=== PATIENT | female | born 1980 ===

== ENCOUNTER 2024-12-20 07:23 | Emergency (ER) | payer OTHER, SELFPAY ==
[2024-12-20 07:34] VITALS: BP 134/81; PULSE 70; RESP 18; TEMP 36.3; O2SAT 100; BMI 20.7
--- NOTE | 2024-12-20 07:47 | ED_ITS ---
HPI - General Adult General Chief complaint: Back Pain/Injury Stated complaint: t-1, neck pain. hard to move back and neck Time Seen by Provider: 12/20/24 07:47 Source: patient and agricultural researcher (all interactions with this patient were facilitate with an [facility] program technician) Mode of arrival: ambulatory Limitations: language barrier (all interactions with this patient were facilitate with an [facility] program technician) History of Present Illness ED Provider: Yisel Simpson PA-C HPI narrative: Patient is a 44 year old assigned female at with no reported medical history presenting to the emergency department today with left sided neck pain. Patient states that over the last couple of days she has had left sided neck pain that radiates into the back of her head. Patient states that it is painful for her to turn her head to the left. Patient states that she fell on December 08 but did not specifically injure her neck / head. Patient denies any other complaints at this time. Related Data Previous Rx's ?Medication ?Instructions ?Recorded cyclobenzaprine 5 mg tablet 5 mg PO TID PRN muscle spa sm 7 12/20/24 days #21 tabs Allergies Allergy/AdvReac Type Severity Reaction Status Date / Time No Known Allergies Allergy Verified 12/20/24 07:39 Review of Systems Constitutional: Constitutional: Reports as per HPI Eyes: Eyes: Reports as per HPI ENT: Reports as per HPI Cardiovascular: Cardiovascular: Reports as per HPI Respiratory: Respiratory: Reports as per HPI Gastrointestinal: Gastrointestinal: Reports as per HPI Genitourinary: Genitourinary: Reports as per HPI Musculoskeletal: Musculoskeletal: Reports as per HPI Integumentary/Breasts: Skin/Breast: Reports as per HPI Neurologic: Reports as per HPI Psychiatric: Psychiatric: Reports as per HPI Endocrine: Endocrine: Reports as per HPI Hematologic/Lymphatic: Hematologic/Lymphatic: Reports as per HPI Allergic/Immunologic: Allergic/Immunologic: Reports as per HPI PMF Past Medical History Attestation statement: The following information was validated with the patient. Source: old records reviewed and nursing notes reviewed Social History Social History Advance Directives: No Advance Directives Information Provided: Yes Physical Exam ED Vital Signs: Vital Signs - 24 hr 12/20/24 07:34 Temperature 97.4 F Pulse Rate 70 Respiratory Rate 18 Blood Pressure 134/81 Pulse Oximetry 100 Oxygen Delivery Method Room Air BMI result Body Mass Index 20.7 Const General: cooperative, no acute distress, alert and awake Nutritional Appearance: well nourished Orientation/consciousness: patient oriented x3 HENMT Head: Yes normal to inspection and Yes atraumatic Ears: hearing grossly normal bilaterally and external ears normal General nose exam: Normal external nose present, no nasal discharge noted and no epistaxis Face and sinus: Yes normal facial exam, No abrasion and No laceration Mouth: Normal oral and palatal mucosa present, no drooling and no muffled voice Eyes General: appearance normal, both eyes and all related structures Periorbital: periorbital findings normal Eyelids: Yes eyelids normal Conjunctivae: conjunctivae normal Pupils: Equal, round and reactive pupils present EOM: EOMs intact bilaterally Neck Other: decreased range of motion to the left secondary to pain Neck: Yes normal visual inspection Resp Effort & Inspection: normal respiratory effort and able to speak in complete sentences Neuro General: patient oriented x3, moves all extremities and CN's II-XI intact bilaterally Cranial nerves: Yes Equal, round and reactive pupils present Cognition (Neuro): normal cognition Extrem General: Yes normal to inspection, Yes full ROM and Yes capillary refill normal Psych Appearance: grossly normal Mental Status: mental status grossly normal Affect: normal affect Attitude: cooperative Thought process: Normal thought process present Thought content: Normal thought content present Insight: Good insight present (Psych) Medical Decision Making Medical Decision Making MDM Narrative: Patient is a 44 year old assigned female at with no reported medical history presenting to the emergency department today with left sided neck pain. Patient's physical exam was as noted in the physical exam portion of this note and consistent with a left sided cervical muscle spasm vs. torticollis. Patient had no meningeal signs. I explained my physical exam findings to the patient. I answered all questions asked by the patient. I stressed the importance of the patient taking her medication as directed (either prescribed or as the over the counter packaging recommends). I stressed the importance of the patient following up with her primary care provider. I stressed the importance of the patient returning to the emergency department immediately if her symptoms were to worsen or if she were to develop any dizziness, shortness of breath, difficulty breathing, chest pain, blurry vision, loss of vision, nausea, vomiting, abdominal pain, fever, chills, back pain, or any other complaints. Patient verbalized agreement and understanding with this treatment plan and discharge. Differential Diagnosis Differential Diagnoses: The differential diagnosis associated with the presentation includes Cervical spasm Torticollis Admission/Observation Consideration of admission/observation: Escalation of care including admission/observation considered Patient would have been admitted to the hospital had her clinical presentation warranted hospital admission. Prescription Management I considered prescription management with: Pain Medication (patient prescribed pain medication for left sided cervical spasm) Discharge Plan Discharge Clinical Impression: Cervical paraspinal muscle spasm Patient Disposition: Home, Self-Care Instructions: Muscle Spasm (ED) Additional Instructions: IF you are prescribed home medications and/or you are taking over the counter medications at home- it is very important you continue to do so as prescribed / directed unless told otherwise. SI le recetan medicamentos y/o est? tomando medicamentos de venta keely, es muy importante que contin?e haci?ndolo seg?n lo recetado/indicado a menos que le indiquen lo contrario. Follow up with your primary care provider. Return to the emergency department immediately if your symptoms worsen or if you develop any dizziness, shortness of breath, difficulty breathing, chest pain, blurry vision, loss of vision, nausea, vomiting, abdominal pain, fever, chills, back pain, or any other complaints. Jacey?seguimiento?con stevens m?dico de atenci?n primaria. Acuda inmediatamente al servicio de urgencias si sreekanth s?ntomas empeoran o si presenta falta de aliento, dificultad para respirar, dolor tor?cico, mareos, aturdimiento, dolor de espald a, dolor abdominal, fiebre, escalofr?os o cualquier otro s?ntoma. Please see the information below about our Patient Portal. If you are not yet enrolled in the [facility] Patient Portal, you will receive an enrollment email invitation following your visit to any [facility] care setting. You may also self-enroll in the Patient Portal by visiting our website: [email or web address] The following information is required to access the Patient Portal: - Your [facility] Medical Record Number - Your personal home email address (must match what is in your electronic medical record, Registration staff can assist with this) - Name - Date of Capabilities of the Patient Portal: - Message some providers - View upcoming appointments - Access your health summary, medical history, and visit history - View current conditions and allergies - View procedure and lab results - View your medications, including guidelines, side effects, and precautions - Complete pre-appointment questionnaires requested by your provider - Ready summary reports of your office visits and procedures To access the Patient Portal Mobile Suzi, follow these directions: - Search Renewable Funding in the Suzi Store or [employer] Store - Download the Suzi - Search for [facility] - Enter your login/password Portal del paciente Si usted no esta inscrito en el portal de pacientes de [facility], recibira amrita invitacion de inscripcion despues de stevens visita al [facility] o al [facility] via correo electronico. Tambien puede inscribirse voluntariamente en el portal de pacientes visitando nuestra pagina web: [email or web address] La siguiente informacion sera requerida para acceder al portal: - Stevens gilbert de historia medica de [facility] - Stevens direccion de correo electronico personal - Nombre - Fecha de nacimiento Capacidades: Las siguientes capacidades estan disponibles en el portal de pacientes: - Enviar mensajes a algunos doctores - Verificar proximas citas - Acceso a stevens historial de jackelin, registro medico e historial de visitas - Mike las condiciones actuales y alergias mike procedimientos y resultados del laboratorio - Mike sreekanth medicamentos, incluyendo las pautas - Efectos secundarios y precauciones - Completar o llenar formularios / cuestionarios de - Citas solicitadas por stevens doctor - Leer los resumenes de reportes medicos de sreekanth visitas y procedimientos Heather acceder a la aplicacion movil: - Liu ASYM IIIealth en la Suzi Store o [employer] Store - Descargue la aplicacion - [facility] - Ingrese stevens nombre de usuario / Contrasena Prescriptions: New cyclobenzaprine 5 mg tablet 5 mg PO TID PRN (Reason: muscle spasm) 7 Days Qty: 21 0RF Referrals: Brent Engel MD [Primary Care Provider, Internal Medicine] Stand Alone Forms: Work/School Release Print Language: Turkish
--- OUTSIDE RECORDS SUMMARY | 2024-12-20 07:56 | XMS_ITS | Clinical Summary ---
Author Organization [facility] Address [address] [place] [address] Phone Care Team Providers Care Federal Aid Coordinator Name Role Phone Unknown, Unknown Primary Care Provider Elias webster Social History Tobacco Use Types Packs/Day Years Used Date Smoking Tobacco: Never Assessed Education Answer Date Recorded Are you interested in more education? Not on kathrine e 07/01/2022 Are you concerned about learning? Not on file 07/01/2022 No 07/01/2022 No 07/01/2022 Digital Access Answer Date Recorded No 07/30/2022 No 07/30/2022 No 07/30/2022 Reliable internet access at home? Not on file 07/30/2022 Device with a working camera? Not on file Comments Unknown Sex and Gender Information Value Date Recorded Sex Assigned at Not on file Legal Sex Female 1:36 PM EDT Gender Identity Not on file Sexual Orientation Not on file Last Filed Vital Signs Vital Sign Reading Time Taken Comments Blood Pressure 119/76 06/22/2019 1:50 PM EDT Pulse 89 06/22/2019 1:50 PM EDT Temperature 37 C (98.6 F) 06/22/2019 1:50 PM EDT Respiratory Rate 20 06/22/2019 1:50 PM EDT Oxygen Saturation 97% 06/22/2019 1:50 PM EDT Inhaled Oxygen Concentration - - Weight - - Height - - Body Mass Index - - Plan of Treatment Health Maintenance Due Date Last Done Comments LIPID PANEL 1978 DEPRESSION SCREENING 1990 SMOKING Hx and SMOKELESS TOBACCO SCREENING 1991 HEPATITIS C SCREENING 02/05/1996 HIV ONE-TIME SCREENING (18-6 5 YEARS) 02/05/1996 PAP SMEAR 1999 MAMMOGRAM 2018 COLOGUARD 2023 COLONOSCOPY 2023 COLORECTAL CANCER SCREENING 2023 FIT TEST 2023 FOBT 2023 SIGMOIDOSCOPY 2023 VIRTUAL COLONOSCOPY 2023 INFLUENZA VACCINE (#1) 2024 9, 11/15/2017 COVID-19 VACCINE (3 - 2024-2 6 season) 2024 07/23/2020, 07/02/2020 Adult Td,Tdap Booster 09/01/2027 08/31/2017 HEPATITIS A VACCINES Aged Out No long er eligible based on patient's age to complete this topic HIB VACCINES Aged Out No longer eligi ble based on patient's age to complete this topic MENINGOCOCCAL VACCINES (ACWY) Aged Out No longer eligible based on patient's age to complete this topic MENINGOCOCCAL VACCINES (B) Aged Out N o longer eligible based on patient's age to complete this topic PNEUMOCOCCAL VACCINES (0-49 years) Aged Out No longer eligible b ased on patient's age to complete this topic Medical Devices Not on file Insurance #[address] [place] [address] HEALTH SAFETY NET [place] [address] [address] NON [facility] [employer] [address] [place] [address] HEALTH SAFETY NET PARTIAL [employer] NON [place] PCP [employer] [address] [place] [address] HEALTH SAFETY NET PARTIAL Member Subscriber Plan / Payer (Ef fective 2019-Present) Name:Leavitt Nicolette Relation to Subscriber:Self Name:Nicolette Leavitt Payer ID:Not on file Group ID:Not on file Type:Medicaid Address: [place] [id number] [employer] NON [place]SPG PCP [employer] HEALTH SAFETY NET [place] [address] [address] NON NSP PCP [employer] HEALTH SAFETY NET PARTIAL [place] NON NSPG PCP [employer] [address] [place] [address] HEALTH SAFETY NET PARTIAL [place] NON NSPG PCP [employer] HEALTH SAFETY NET PARTIAL [place] NON NSPG PCP [employer] [facility] NET PARTIAL [place] NON N[place] PCP [employer] HEALTH SAFETY NET PARTIAL [facility] NON [facility] PCP [facility] Care Teams Federal Aid Coordinator Relationship Specialty Start Date End Date Unknown, Unknown, PCP - General 06/22/19 Additional Source Comments The information contained in this document represents components of the legal health record. It is not the complete legal health record.[facility]
[2024-12-20 08:15] VITALS: BP 134/81; PULSE 70; RESP 18; TEMP 36.3; O2SAT 100
== END 2024-12-20 08:16 | disposition home or self-care (01) ==
PROVIDERS: Emergency Provider Emergency Medicine; PCP Family Medicine
DX: M54.2 Cervicalgia (principal); M54.50 Low back pain, unspecified; Z79.899 Other long term (current) drug therapy
CPT/HCPCS: 96372; 99283; 99284; J1885

== ENCOUNTER 2025-02-13 13:42 | Outpatient (AMB) | payer OTHER, SELFPAY ==
--- NOTE | 2025-02-13 14:02 | MHC.PC.OV ---
Vital Signs 02/13/25 14:18 Height 5 ft 6 in Weight 133 lb 2 oz BMI 21.5 BP 114/70 Blood Pressure Location Lt brachial Position Sitting Respiration 18 Pulse 63 Pulse Source Pulse Oximeter Temp 98.1 F Temp Source Oral Pulse Oximetry (%) 99 Oxygen Delivery Method Room Air Intake Visit Reasons: [employer] -per joel Intake Note: New patient here to establish care Doughnut Icer Machine Required: Yes Doughnut Icer Machine Name: Id# [id number] Information Interpreted: non-clinical & clinical Accompanied by: Self / Same As Patient Allergies No Known Allergies Allergy (Verified 02/13/25 14:14) Tobacco use date assessed: 02/13/25 Dental Screening Dental Screen Date: 02/13/25 Did you have a dental visit in the last 12 months?: Yes Did you have a dental problem in the last 6 months where you did not have access to dental care?: No Was dental information given to patient?: Patient has dentist HPI [employer] -per joel HPI Details New Patient? ?? Prior PCP:? No Recent PCP Last office visit/CPE:? Acute issue(s):? Stomach discomfort & Bloating after eating. Drinks about 36 Oz water daily. ?? PMHx:? Denies SurgHx:? Cervix & Steralization FHx:? Not known SocHx:?Never smoked, EtOH None. No drugs PFSH Surgical History (Updated 02/13/25 @ 14:41 by Jeremy Portillo CMA) H/O: hysterectomy H/O eye surgery Social History (Updated 02/13/25 @ 14:17 by Jeremy Portillo CMA) Housing: House Alcohol intake: never Patient Tobacco Use Status: Never used Tobacco e-Cigarette/Vaping Use: Never Used Second Hand Smoke Exposure: No Use of substances other than those prescribed or required for medical reasons: No service: No Current occupational status: employed Current occupation: Maintenance Cognitive needs: No Hearing needs: No Vision needs: Yes Questionnaire PHQ-9 Over the last 2 weeks, how often have you been bothered by any of the following problems? 1. Little interest or pleasure in doing things: not at all 2. Feeling down, depressed, or hopeless: not at all 3. Trouble falling or staying asleep, or sleeping too much: nearly every day 4. Feeling tired or having little energy: not at all 5. Poor appetite or overeating: not at all 6. Feeling bad about yourself - or that you are a failure or have let yourself or your family down: not at all 7. Trouble concentrating on things, such as reading the newspaper or watching television: not at all 8. Moving or speaking so slowly that other people could have noticed. Or the opposite - being so fidgety or restless that you have been moving around a lot more than usual: not at all 9. Thoughts that you would be better off or of hurting yourself in some way: not at all Total score: 3 Depression Screening Interpretation: Negative Depression Screening Done: Yes [id number] - PHQ-9 Billing: Yes Source: Developed by Drs. Jaren Damico, Yelena Nice, Chuy Calloway and colleagues, with an educational yoselyn from [employer]. Thrive Questionnaire Date Thrive assessed: 02/13/25 I am a: Patient What is your living situation today?: I have a steady place to live Within the past 12 months, did the food you bought not last and you didn't have the money to get more?: Never true Within the past 12 months, did you worry whether your food would run out before you got money to buy more?: Never true Do you have trouble paying for medicines?: No Do you have trouble getting transportation to medical appointments?: No Do you have trouble paying your heating and electricity bill?: No Do you have trouble taking care of your child, family member or friend?: No Do you have trouble with day-to-day activities such as bathing, preparing meals, shopping, managing finances, etc.?: No Are you currently unemployed and looking for a job?: No Are you interested in more education?: No Please select the resources that you would like help with: None Currently or been in a relationship where the following occur: No concerns reported THRIVE Score: 0 AUDIT C Alcohol Use Questionnaire (AUDIT-C) 1. How often do you have a drink containing alcohol?: Never Total Score: 0 ISAAC-7 AMB Questionnaire ISAAC-7 Date ISAAC - 7 assessed: 02/13/25 Feeling nervous, anxious, or on edge: 0 = Not at all Not being able to stop or control worryin = Not at all Worrying too much about different things: 0 = Not at all Trouble relaxin = Not at all Being so restless that it is hard to sit still: 0 = Not at all Becoming easily annoyed or irritable: 0 = Not at all Feeling afraid as if something awful might happen: 0 = Not at all Total ISAAC-7 score (0-4 normal; 5-9 mild; 10-14 moderate; 15-21 severe): 0 Source: Developed by Drs. Jaren Damico, Yelena Nice, Chuy Calloway and colleagues, with an educational yoselyn from [employer]. ISAAC-7 Assessment Billing ISAAC-7 Assessment Tool: ISAAC-7 Assessment 65682 Review of Systems Const Denies chills, Denies fatigue, Denies fever(s), Denies headache(s) and Denies weakness ENT Denies dizziness and Denies headache(s) Card Denies chest pain, Denies lightheadedness, Denies dyspnea and Denies other (Palpitations) Resp Denies cough, Denies dyspnea, Denies wheezing and Denies other ( shortness of breath) Musc Denies numbness and Denies tingling Neuro Denies dizziness, Denies headache(s), Denies numbness, Denies tingling, Denies paresthesias and Denies weakness Psych Denies anxiety and Denies depression Endo Denies fatigue Aller/Immun Denies wheezing Physical exam (Primary Care) Vital Signs: Last Vital Signs Temp 98.1 F 02/13/25 14:18 Pulse 63 02/13/25 14:18 Resp 18 02/13/25 14:18 BP 114/70 02/13/25 14:18 Pulse Ox 99 02/13/25 14:18 Oxygen Delivery Method Room Air 02/13/25 14:18 BMI result Body Mass Index 21.5 Tobacco/Smoking Status: Tobacco use Status Tobacco use date assessed 02/13/25 02/13/25 14:20 Patient Tobacco Use Status Never used Tobacco 02/13/25 14:20 e-Cigarette/Vaping Use Never Used 02/13/25 14:20 PHQ-9: PHQ-9 Score PHQ-9: Total score 3 02/13/25 14:40 Depression Screening Interpretation: Negative Thrive Assessment: Date of Thrive Assessment Date Thrive assessed 02/13/25 02/13/25 14:03 Currently or been in a relationship where the following occur: No concerns reported Const General: no acute distress and well developed Nutritional Appearance: well nourished Orientation/consciousness: patient oriented x3 HENMT Head: Yes normocephalic and Yes atraumatic Eyes General: appearance normal, both eyes and all related structures Pupils: Equal, round and reactive pupils present EOM: EOMs intact bilaterally Resp Effort & Inspection: normal respiratory effort Auscultation: clear to auscultation bilaterally Cardio Rate: regular rate Rhythm: regular rhythm Heart sounds: S1 normal heart sound present, S2 normal heart sound present, no gallops, no murmurs and no rubs Neuro General: patient oriented x3 and gait normal Cranial nerves: Yes Equal, round and reactive pupils present Psych Affect: normal affect Coding Level of Care Code New Pt Level 3 (93845) Diagnoses Abdominal discomfort R10.9 Laboratory exam ordered as part of routine general medical examination Z00.00 Additional Codes ISAAC-7 Assessment Billing - ISAAC-7 Assessment Tool: ISAAC-7 Assessment 95799 ([id number]) PHQ-9 - 01769 - PHQ-9 Billing: Yes ([id number]) Assessment & Plan Assessment & Plan (1) Abdominal discomfort: Code(s): R10.9 - Unspecified abdominal pain Category: Medical Plan: Abdominal discomfort and bloating Increase hydration Try a soluble fiber capsule If not improving will try simethicone and refer to Gastroenterology (2) Laboratory exam ordered as part of routine general medical examination: Code(s): Z00. - Encounter for general adult medical examination without abnormal findings Category: Medical Plan: Check labs Orders: Orders Complete Blood Count Auto Diff Today Z00.00 - Encounter for general adult medical examination without abnormal findings Lipid Panel Today Z00.00 - Encounter for general adult medical examination without abnormal findings Microalbumin, Random (w Creat) Today I10 - Essential (primary) hypertension Comprehensive [place]. Panel Fast Today Z00.00 - Encounter for general adult medical examination without abnormal findings TSH reflex Free T4 Today Z00.00 - Encounter for general adult medical examination without abnormal findings UA CC w/rflx Micro + Cult Today Z00.00 - Encounter for general adult medical examination without abnormal findings Medications: New calcium polycarbophil (FiberCon) 625 mg PO DAILY 30 tabs 2RF 30 days Discontinued cyclobenzaprine Discontinued Reason: Patient no longer taking 5 mg PO TID 7 days PRN 21 tabs 0RF muscle spasm
[2025-02-13 14:18] VITALS: BP 114/70; PULSE 63; RESP 18; TEMP 36.7; O2SAT 99; BMI 21.5
--- OUTSIDE RECORDS SUMMARY | 2025-02-13 21:00 | XMS_ITS | Clinical Summary ---
Author Organization [facility] Address [address] [place] [id number] Phone Care Team Providers Care Shoe Lay Out Planner Name Role Phone Unknown, Unknown Primary Care [...] Medical Devices Not on file Insurance #2 [place] [address] HEALTH SAFETY NET [place] [address] NON [facility] PCP [employer] [address] [place] [address] HEALTH SAFETY NET PARTIAL [place] NON [place] PCP [facility] [employer] [facility] [address] [place] [address] HEALTH SAFETY NET PARTIAL Member Subscriber Plan / Payer (Ef fective 2019-Present) Name:Leavitt Nicolette Relation to Subscriber:Self Name:Nicolette Leavitt Payer ID:Not on file Group ID:Not on file Type:Medicaid Address: [place] [id number] [employer]LL[place]ENSE NON [place] PCP [employer] HEALTH SAFETY NET [place] [address] NON NSP PCP [facility] [employer] HEALTH SAFETY NET PARTIAL [place] NON NSPG PCP [employer] [facility] [address] [place] [address] HEALTH SAFETY NET PARTIAL [place] NON [place]SPG PCP [facility] [employer] HEALTH SAFETY NET PARTIAL [place] NON [place] PCP [facility] [employer] [facility] NET PARTIAL [place] NON [facility] PCP [employer] [facility] HEALTH SAFETY NET PARTIAL [facility] NON [facility] Care Teams Shoe Lay Out Planner Relationship Specialty Start Date End Date Unknown, Unknown, PCP - General 06/22/19 Additional Source Comments The information contained in this document represents components of the legal health record. It is not the complete legal health record.[facility]
== END 2025-02-13 15:25 | disposition home or self-care (01) ==
LOC: HO.HMCFM 13:43
PROVIDERS: PCP Family Medicine; Visit Provider Family Medicine
DX: R10.9 Unspecified abdominal pain (principal); Z00.00 Encounter for general adult medical examination without abnormal findings

== ENCOUNTER → 2025-02-13 13:42 | Outpatient (BNVA) | payer OTHER, SELFPAY | PROVIDERS: PCP Family Medicine; Visit Provider Family Medicine | DX: Z76.89 Persons encountering health services in other specified circumstances (principal); R10.9 Unspecified abdominal pain; Z13.31 Encounter for screening for depression; Z13.39 Encounter for screening examination for other mental health and behavioral disorders | CPT/HCPCS: 96127; 99202 ==

== ENCOUNTER 2025-03-03 07:49 | Outpatient (REF) | payer OTHER, SELFPAY ==
--- OUTSIDE RECORDS SUMMARY | 2025-03-03 07:53 | XMS_ITS | Clinical Summary ---
Author Organization [facility] Address [address] [place] [id number] Phone Care Team Providers Care Optimization Specialist Name Role Phone Unknown, Unknown Primary Care [...] Medical Devices Not on file Insurance #2 [place] [address] [address] SAF[address]Y NET [address] [address] [facility] [place] PCP [facility] [employer] [address] [place] [address] HEALTH SAFETY NET PARTIAL [place] NON [place] PCP [facility] [employer] [address] [place] [address] HEALTH SAFETY NET PARTIAL Member Subscriber Plan / Payer (Ef fective 2019-Present) Name:Leavitt Nicolette Relation to Subscriber:Self Name:Nicolette Leavitt Payer ID:Not on file Group ID:Not on file Type:Medicaid Address: [place] [id number] WELLSENSE NON [place]SP[place] PCP [facility] [employer] HEALTH SAFETY NET [place] [address] NON NSP PCP S[facility] HEALTH SAFETY NET PARTIAL [place] NON NSPG PCP [facility] [employer] [facility] [address] [place] [address] HEALTH SAFETY NET PARTIAL [place] NON NSPG PCP [facility] HEALTH SAFETY NET PARTIAL [place] NON [place]SP[place] PCP [facility] [employer] NET PARTIAL [place] NON [place] PCP S[employer] [facility] HEALTH SAFETY NET PARTIAL [facility] NON [facility] [place] PCP [facility] Address: [facility] [address] [place] [address] Care Teams Optimization Specialist Relationship Specialty Start Date End Date Unknown, Unknown, PCP - General 06/22/19 Additional Source Comments The information contained in this document represents components of the legal health record. It is not the complete legal health record.[facility]
[2025-03-03 11:07] LABS: Appearance Urine Cloudy; Glucose Urine UA Negative (Negative); PH 5.0 (5.0-9.0); Specific Gravity - Urine 1.020 (1.005-1.025)
[2025-03-03 11:14] LABS: MANUAL DIFF FLAG NO
[2025-03-03 11:17] LABS: Hematocrit 43.2 % (37.0-47.0); Hemoglobin 14.0 g/dl (12.0-16.0); Imm Gran Abs Auto 0.05 X10*3/uL (0.00-0.03); Imm Gran Pct Auto 0.5 % (0.0-0.4); Lymphocytes Absolute Auto 3.8 X10*3/uL (1.2-4.9); Mean Corpuscular HGB Conc 32.4 g/dl (31.0-35.0); Mean Corpuscular Hemoglobin 30.1 pg (27.0-33.0); Mean Corpuscular Volume 92.9 fL (80.0-98.0); NRBC Abs Auto 0.000 X10*3/uL (0.0-0.012); NRBC Pct Auto 0.0 /100WBC (0.0-0.2); Platelet Count 240 X10*3/uL (160-400); Red Blood Count 4.65 X10*6/uL (4.20-5.50); White Blood Count 10.3 X10*3/uL (4.8-10.8)
[2025-03-03 11:43] LABS: Alanine Aminotransferase 20 U/L (0-31); Albumin Level 4.5 g/dL (3.5-5.0); Alkaline Phosphatase 86 U/L (39-117); Anion Gap 10 (12-20); Aspartate Amino Transferase 30 U/L (5-31); Blood Urea Nitrogen 13 mg/dL (9-16); Calcium 10.0 mg/dL (8.4-10.2); Carbon Dioxide 27 mmol/L (22-29); Chloride 107 mmol/L (96-108); Cholesterol 128 mg/dL (<200); Estimated Glomerular Filt Rate > 60; HDL Cholesterol 46 mg/dL (>40); Potassium 4.3 mmol/L (3.3-5.1); Sodium 140 mmol/L (135-145); Total Protein 7.1 g/dL (6.5-8.0); Triglycerides 100 mg/dL (<150)
== END 2025-03-03 07:50 ==
LOC: HO.WFDLDS 07:49
PROVIDERS: Visit Provider Family Medicine
DX: Z00.00 Encounter for general adult medical examination without abnormal findings (principal); I10 Essential (primary) hypertension
CPT/HCPCS: 36415; 80053; 80061; 81003; 82043; 82570; 84443; 85025